=== PATIENT | female | born 1950 ===

== ENCOUNTER 2021-02-26 18:19 | Emergency (ER) | payer MEDICARE, BC ==
[~2021-02-26] VITALS: Ht 157.5 cm; Wt 47.6 kg
[2021-02-26] MEDS ORDERED: POTA10CA43 PO (18:43)
[2021-02-26] MEDS ORDERED: MAGN400T8 PO (18:43)
[2021-02-26] MEDS ORDERED: VENL37.510 PO (18:43)
[2021-02-26] MEDS ORDERED: RALO60TA PO (18:43)
[2021-02-26] MEDS ORDERED: CARV25TA2 PO (18:43)
[2021-02-26] MEDS ORDERED: DIGO125T PO (18:43)
[2021-02-26] MEDS ORDERED: AMIO200T5 PO (18:43)
[2021-02-26] MEDS ORDERED: RIVA10TA PO (18:43)
--- NOTE | 2021-02-26 20:30 | NUR ---
Bed available in the ER. Called patient to be placed in room but was not present in waiting room or outside of ER.
--- NOTE | 2021-02-26 20:50 | NUR ---
Patient was called to be placed in room but was not present in the ER waiting.
--- NOTE | 2021-02-26 21:18 | NUR ---
Patient was called to be placed in waiting room but was not present in the waiting room. Patient was triaged but WAS NOT SEEN BY ERMD.
== END 2021-02-26 21:20 | disposition left against medical advice (07) ==
LOC: ER 18:25
DX: Z53.21 Procedure and treatment not carried out due to patient leaving prior to being seen by health care provider (principal)